=== PATIENT | female | born 1935 | race Caucasian/White ===

== ENCOUNTER 2023-11-02 23:13 | Inpatient (IN) | payer MEDICARE, SELFPAY ==
[2023-11-02 21:13] VITALS: BP 158/82
--- NOTE | 2023-11-02 21:13 | ED.GENMED ---
History of Present Illness
General
Chief Complaint: Fall
Source: patient
Exam Limitations: none
Time Seen by Provider: 11/02/23 21:10
Travel History
Have you had any contact with someone who has COVID-19?: No
Do you have any symptoms of coronavirus? Fever > 100 degrees, chills, cough, shortness of breath, sore throat, loss of taste or smell, muscle aches, or headache?: No
History of Present Illness
History of Present Illness:
This is a 87 year old female that is brought in by ambulance. States that she was feeling dizzy and she fell. States that she can't straight the right leg and she has pain in the right hip area. States that she thinks she hit her head. States that
she has a headache with the dizziness. Denies any LOC. Denies any fever, chills, chest pain, SOB, abd pain, nausea, vomiting, diarrhea, urinary burning.
Past History
Past History
ED Past Medical History: Cancer (Skin CA), Hypothyroidism (prehospital. History of hyperthyroidism she had surgery) and Other (Vertigo, Prolapsed bladder, Immune deficiency disease)
ED Past Surgical History: Appendectomy, Gynecological (Hysterectomy), Tonsilectomy, Urological (Bladder surgery, ) and Other (Cataracts, Bilateral Carotids, )
Patient has exhibited threatening behavior?: No
Social History
Tobacco: Non-smoker
Alcohol: None
Personal:
Living: with family
Family History
Family History: Other (Family history of immune deficiency)
Review of Systems
Review of Systems
All Other Systems: ROS reviewed and negative except as documented in HPI and ROS
Constitutional: Reports no symptoms; Denies fever or chills
EENT: Reports no symptoms
Respiratory: Reports no symptoms; Denies cough or trouble breathing
Cardiac: Reports no symptoms; Denies chest pain
ABD/GI: Reports no symptoms; Denies abdominal pain, nausea, vomiting or diarrhea
: Reports no symptoms; Denies dysuria, frequency or urgency
Musculoskeletal: Reports joint pain (Right hip pain)
Skin: Reports no symptoms
Neurological: Reports dizzy and headache
Psychiatric: Reports no symptoms
Phy Exam
General Physical Exam
General Presentation: mild distress
General age: appears stated age
General Skin: warm, dry and pale
General Habitus: elderly
General Mental: alert
General Hydration: dry mucous membranes
ENT Exam
ENT Exam: TM's normal, pharynx normal and neck supple
Eye Exam
Eye Exam: EOMI
Cardiovascular Exam
Cardiovascular Exam: regular rate/rhythm, no edema and normal peripheral pulses
Pulmonary Exam
Pulmonary Exam: lungs clear, no respiratory distress, no rales, chest non tender, no crackles, no rhonchi, no wheezing and no cough
Gastrointestinal Exam
Gastrointestinal Exam: normal bowel sounds, non tender, soft, no organomegaly, no pulsatile mass and non distended
Musculoskeletal Exam
Musculoskeletal Exam: no edema and other (Right hip pain with palpation. Right leg shortened and externally rotated)
Skin Exam
Skin Exam: warm/dry, no rash, no petechia and pallor
Psychiatric Exam
Psychiatric Exam: normal mood/affect
Course
Orders/Labs/Results
Orders:
Orders
11/02/23 21:13
Acetaminophen [Tylenol] 650 mg PO NOW STA
11/02/23 21:18
Type+Screen Urgent
Complete Blood Count/With Diff Urgent
Comprehensive Metabolic Panel Urgent
PT/INR [Prothrombin Time] Urgent
11/02/23 21:25
Electrocardiogram (*1) Urgent
Reason for Study: Vertigo / Dizzy
EKG- Treatment ONCE
11/02/23 21:26
Hip, Right 2-3 Views [CR Hip - RT w/wo Pel 2-3 Vw*] Urgent
Comment:
Reason For Exam: Fall, pain
Include a pelvis x-ray?: Yes
11/02/23 21:28
CT Head W/o Iv Contrast Urgent
Comment:
Reason For Exam: Fall hitting head
11/02/23 21:33
Troponin I Urgent
11/02/23 22:05
Ondansetron Injectable [Zofran] 4 mg IV NOW STA
11/02/23 22:06
Consult Orthopedic [ORTHOPEDIC CONSULT] Urgent
Consulting Provider: Shahid Blanco
Was physician already notified: Yes
11/02/23 22:42
Admit/Transfer Patient As Directed
Co-Sign Provider:
Level of Care: Inpatient admission
Assign to:: Medical/Surgical
Physician / Group: cassy
Diagnosis: fall, hip fracture
Reason for Hospitalization: fall, hip fracture
Expected length of stay greater than two midnights?: Yes
ELOS- Estimated Length of Stay in days: 2
I certify the patient meets the requirements for IP care: Yes
Code Status As Directed
Resuscitation Status: Full Code
11/02/23 22:43
Orthostatic Vital Signs As Directed
Orthostatic VS Frequency: Now
Abnormal Lab Results
11/02/23
21:18
RBC 4.06 L 10^6/uL
(4.20-5.40)
Hgb 11.9 L g/dL
(12.0-16.0)
Hct 34.5 L %
(37.0-47.0)
Abs Immat Gran (auto) 0.2 H 10^3/uL
(0-0.05)
Absolute Monos (auto) 0.7 H 10^3/uL
(0.1-0.6)
Immature Gran % 1.8 H %
(0-0.5)
Sodium 133 L mmol/L
(135-145)
Carbon Dioxide 21 L mmol/L
(22-30)
BUN 22 H mg/dl
(7-17)
Glucose 137 H mg/dl
(70-99)
11/02/23 21:18
11/02/23 21:18
H/h slightly low. Sodium slightly low. Dehydration. Glucose nonfasting, PT 13.5 with INR 1.03, Troponin <0.012
Vital Signs
Initial and Last Documented VS:
Initial Vital Signs
Temp Pulse Resp BP Pulse Ox
98.0 F 79 20 158/82 96
11/02/23 21:13 11/02/23 21:13 11/02/23 21:13 11/02/23 21:13 11/02/23 21:13
Last Documented Vital Signs
Temp Pulse Resp BP Pulse Ox
98.0 F 70 21 158/82 96
11/02/23 21:13 11/02/23 23:00 11/02/23 23:00 11/02/23 21:13 11/02/23 21:13
MDM/Problems Addressed
Differential Diagnosis Includes:
Right hip fracture, Hip dislocation
MDM/Problems Addressed:
This is a 87 year old female that is brought in by ambulance with c/o fall. States that she has pain in the right hip area.
Will check labs and get X-ray.
Back into see patient and family. Explained that she has a fracture hip. Orthopedics and Hospitalist notified about admission.
Chronic conditions affecting care:
NA
Acute Exacerbation and/or Progression of Chronic Illness:
NA
*Radiology
Radiology exam reviewed: radiology read reviewed (CT head- No evidence of acute intracranial abnormality. Right hip=Comminuted intertrochanteric fracture of the right proximal femur. )
*Pulse Oximetry
Patient hypoxic: no
*EKG
Interpreted by ED Provider?: Yes
Heart Rate: 70
Rate: normal
Rhythm: sinus arrhythmia
[place]: left axis deviation
Interval: normal interval
QRS Pattern: normal QRS
Ischemia: no ischemia
*Painter Interpretation
Rate: normal
Heart Rate: 78
*Critical Care Note
Total Time (30-74mins, 75-104mins- exclusive of procedures): Not Applicable
ED Attending Note
-
Portions of this chart may have been created with voice recognition software.� Occasional wrong word or��sound alike� substitutions may have occurred due to the inherent limitations of voice recognition software.
Discharge Plan
Departure
Patient Disposition: Admit
Date of Disposition: 11/02/23
Time of Disposition: 22:07
Admit to: Med/Surg
Presentation/result/management discussed w/ accepting MD/DO: Hospitalist
Patient with high blood pressure during this ER visit?: Yes
Condition: Good
Covid-19: Not Applicable
Discharge Problem:
Closed fracture of right hip
Interventions
Interventions:
*Risk Screen - Suicide Last Done: 11/02/23 21:12
*General Assessment Last Done: 11/02/23 21:12
*Neglect/Abuse Screening Last Done: 11/02/23 21:12
*ED COVID-19 Vaccine History Last Done: 11/02/23 21:12
ED-Musculoskeletal Assessment Last Done: 11/02/23 21:31
ED- Neurological Assessment Last Done: 11/02/23 21:31
ED-Skin Assessment Last Done: 11/02/23 21:31
[2023-11-02 21:24] LABS: % Basophils 0.5 % (0-2); % Eosinophils 1.8 % (0-6); % Immature Granulocytes 1.8 % (0-0.5); % Lymphocytes 26.2 % (20.5-51.1); % Neutrophils 62.7 % (42.2-75.2); Absolute Basophils 0.1 10^3/uL (0-0.2); Absolute Eosinophils 0.2 10^3/uL (0-0.7); Absolute Immature Granulocytes 0.2 10^3/uL (0-0.05); Absolute Lymphocytes 2.6 10^3/uL (1.2-3.4); Absolute Monocytes 0.7 10^3/uL (0.1-0.6); Absolute Neutrophils 6.2 10^3/uL (1.4-6.5); Hematocrit 34.5 % (37.0-47.0); Hemoglobin 11.9 g/dL (12.0-16.0); Mean Corp Hgb Conc. 34.5 g/dL (33.0-37.0); Mean Corpuscular Hgb 29.3 pg (27.0-31.0); Nucleated Red Blood Cells % 0 %; Platelet Count 288 10^3/uL (130-400); Red Blood Cell Count 4.06 10^6/uL (4.20-5.40); Red Cell Dist. Width 13.1 % (11.5-14.5); White Blood Cell Count 9.9 10^3/uL (4.8-10.8)
[2023-11-02 21:33] LABS: INR 1.03; PT 13.5 Sec (11.4-14.6)
[2023-11-02 21:38] LABS: ALT (SGPT) 16 U/L (0-35); AST (SGOT) 26 U/L (14-36); Albumin 3.9 g/dl (3.5-5.0); Alkaline Phosphatase 121 U/L (38-126); Blood Urea Nitrogen 22 mg/dl (7-17); Calcium 9.5 mg/dl (8.4-10.2); Carbon Dioxide 21 mmol/L (22-30); Chloride 105 mmol/L (98-107); Estimated Creatinine Clearance 46 ml/min; Glucose 137 mg/dl (70-99); Sodium 133 mmol/L (135-145); Total Bilirubin 0.4 mg/dl (0.2-1.3); Total Protein 6.6 g/dl (6.3-8.2); eGFR > 60.00
[2023-11-02 22:07] LABS: Troponin I < 0.012 ng/ml
[2023-11-02] MEDS: ZOFRAN 4 MG IV (22:24)
--- NOTE | 2023-11-02 22:46 | HPS.HSE ---
Family Physician
-
Family Physician: Tato Xiao MD
Chief Complaint
-
fall
History of Present Illness
87-year-old female past medical history of hypothyroidism, skin cancer, bladder prolapse, presenting for dizziness resulting in a fall. Afterwards she could not stand straight on the right leg and has pain in the right hip. She thinks she hit her
head. She denied passing out. Denied any fevers or chills, chest pain, shortness of breath, abdominal pain, nausea vomiting or diarrhea, urinary symptoms.
Patient has been having progressive cognitive decline over the past year. She has had intermittently a few falls since this time associate with dizzy spells. She gets dizzy spells whenever she gets up in the morning or ambulates. No history of
low blood pressure or orthostatic hypotension. No episodes of passing out. No episodes of vertigo or symptoms with head movements.
She fell a month ago onto her back resulting in L1 fracture however on imaging later there is no L1 fracture. She has been having some more ambulatory dysfunction since that fall but otherwise she is able to ambulate upstairs and walk with no chest
pain or shortness of breath.
Patient been eating and drinking adequately although eating a little bit less than she was previously.
No smoking or alcohol use.
Medical History
Past Medical History
Past Medical History: Reports Other (hypothyroidism, skin cancer, bladder prolapse)
Past Surgical History: Reports Other (Appendectomy, Gynecological (Hysterectomy), Tonsilectomy, Urological (Bladder surgery, ) and Other (Cataracts, Bilateral Carotids, ))
Social History
Tobacco: Non-smoker
Alcohol: None
Drug: None
Family History
Family History: Not pertinent
Allergies / Home Medications
Allergies reflects when Allergies were last updated in [employer].
Home Medications with original date entered in [employer]
Allergy/Medication List:
Allergies
Allergy/AdvReac Type Severity Reaction Status Date / Time
prednisone Allergy dazed, Verified 09/17/22 01:18
confused,
headache,
SOB
Home Medications
melatonin 3 mg tablet 6 mg PO HS Sleep ##0 01/28/19
aspirin 81 mg tablet,delayed release (Ryley Low Dose Aspirin) 81 mg PO DAILY 30 days ##30 12/23/21
levothyroxine 125 mcg tablet 125 mcg PO DAILY 11/02/23
Review of Systems
-
History Source: Patient
A 12 point ROS was completed and negative except as noted: Yes
Constitutional: Reports No Symptoms
EENT: Reports No Symptoms
Respiratory: Reports No Symptoms
Cardiac: Reports No Symptoms
Abdomen/GI: Reports No Symptoms
: Reports No Symptoms
Musculoskeletal: Reports No Symptoms
Skin: Reports No Symptoms
Neurological: Reports No Symptoms
Endocrine: Reports No Symptoms
Hematologic/Lymphatic: Reports No Symptoms
Psych: Reports No Symptoms
Physical Exam
Vital Signs
Vital Signs
Temp Pulse Resp BP Pulse Ox
98.0 F 79 20 158/82 96
11/02/23 21:13 11/02/23 21:13 11/02/23 21:13 11/02/23 21:13 11/02/23 21:13
Physical Exam
General: Well Developed, Well Nourished and No Apparent Distress
HEENT: NormoCephalic, Moist mucous membranes and Atraumatic
Respiratory: Clear
Cardiac: S1/S2 and Regular Rhythm; No Murmur or Rub
GI: Soft, Non Tender, Non Distended and Normal Bowel Sounds; No Organomegaly
Rectal: Deferred by Provider
Musculoskeletal: No Clubbing, No Cyanosis and No Edema
Skin: No Rash
Neuro: Nonfocal/grossly intact
Laboratory Results
-
11/02/23 21:18
11/02/23 21:18
Laboratory Results
PT 13.5 Sec (11.4-14.6) 11/02/23 21:18
INR 1.03 11/02/23 21:18
Total Bilirubin 0.4 mg/dl (0.2-1.3) 11/02/23 21:18
AST 26 U/L (14-36) 11/02/23 21:18
ALT 16 U/L (0-35) 11/02/23 21:18
Alkaline Phosphatase 121 U/L (38-126) 11/02/23 21:18
Troponin I < 0.012 ng/ml 11/02/23 21:33
Data Reviewed
-
Lab Data: Labs Reviewed by me
Old Records: Reviewed
Impression/Plan
-
IMPRESSION:
PLAN:
# Right proximal femur comminuted intertrochanteric fracture
-Ortho consulted for plan for surgery on Tuesday
-CT head shows no acute abnormality
-Tylenol, Toradol, for pain
-Cautious with Dilaudid since patient somewhat lethargic after receiving fentanyl en route to the hospital
-Hold prophylactic aspirin
-Patient at low risk for cardiac complications given lack of cardiac history, good functional status prior to recent falls
# Ongoing dizziness episodes, suspect orthostatic hypotension
-Check orthostatic vital signs
-EKG shows normal sinus rhythm with sinus arrhythmia
# History of falls with questionable L1 fracture
-L1 fracture apparently ruled out on more recent x-ray however as per daughter
# Progressive cognitive decline likely dementia
Hypothyroidism
-Continue levothyroxine
Chronic hyponatremia
-Sodium normally around 133
History of skin cancer
History of bladder prolapse
Full code
DVT prophylaxis�Heparin
Regular diet
[2023-11-02 23:00] VITALS: BP 145/63
[2023-11-03] VITALS (9 sets, daily range): BP systolic 103–154; BP diastolic 58–89; BMI 20.4
[2023-11-03 06:46] LABS: % Basophils 0.3 % (0-2); % Eosinophils 0.1 % (0-6); % Immature Granulocytes 0.6 % (0-0.5); % Lymphocytes 8.3 % (20.5-51.1); % Monocytes 4.7 % (1.7-9.3); Absolute Immature Granulocytes 0.1 10^3/uL (0-0.05); Absolute Lymphocytes 1.1 10^3/uL (1.2-3.4); Absolute Monocytes 0.6 10^3/uL (0.1-0.6); Absolute Neutrophils 11.3 10^3/uL (1.4-6.5); Hemoglobin 11.5 g/dL (12.0-16.0); Mean Corp Hgb Conc. 33.8 g/dL (33.0-37.0); Mean Corpuscular Hgb 29.3 pg (27.0-31.0); Mean Corpuscular Volume 86.5 fL (81.0-99.0); Mean Platelet Volume 10.3 fL (7.4-10.4); Nucleated Red Blood Cells % 0 %; Platelet Count 266 10^3/uL (130-400); Red Blood Cell Count 3.93 10^6/uL (4.20-5.40); Red Cell Dist. Width 13.1 % (11.5-14.5); White Blood Cell Count 13.1 10^3/uL (4.8-10.8)
[2023-11-03 07:17] LABS: ALT (SGPT) 16 U/L (0-35); AST (SGOT) 22 U/L (14-36); Albumin 3.7 g/dl (3.5-5.0); Alkaline Phosphatase 105 U/L (38-126); Blood Urea Nitrogen 24 mg/dl (7-17); Calcium 9.5 mg/dl (8.4-10.2); Carbon Dioxide 25 mmol/L (22-30); Chloride 101 mmol/L (98-107); Estimated Creatinine Clearance 53 ml/min; Glucose 130 mg/dl (70-99); Potassium 4.6 mmol/L (3.5-5.1); Sodium 135 mmol/L (135-145); Total Bilirubin 0.4 mg/dl (0.2-1.3); Total Protein 6.1 g/dl (6.3-8.2); eGFR > 60.00
--- NOTE | 2023-11-03 07:38 | W.PN.UPDATE ---
Update Note
Progress Note Update
Patient seen and evaluated
Plan for OR tomorrow for right hip CMN
NPO at midnight
Formal consult note to follow
[2023-11-03] MEDS: HEPARIN 5000 UNITS SC ×2 (08:52→21:07)
--- NOTE | 2023-11-03 09:14 | PTCARENOTE ---
pt wakes to name. states no pain unless moving right leg. pulses present. room air 92% breath sounds diminished. pt son at bedside reviewed pt condition an plan of care.
[2023-11-03] MEDS: SYNTHROID 125 MCG PO (09:52)
--- NOTE | 2023-11-03 10:18 | W.PN.HOSP.TC ---
Addendum entered and electronically signed by Enoch Stone DO 11/03/23 16:03:
TSH 0.05, free T4 2.56. Free T3 normal.
Iatrogenic hyperthyroidism suspected. Will lower levothyroxine dose to 100 mcg daily. Recheck thyroid labs in 4 weeks.
Original Note:
Today's Communication/Plan
-
TSH
B12
Orthostatics
Hemoglobin A1c
Assessment / Plan
Assessment / Plan
Gen-AAOx3, NAD
HEENT-NC, AT, anicteric, clear oral mm
Neck-supple
CV-reg, no M, +S1/S2
Lungs-clear B/L
Abd-soft, NT, ND
Ext-no edema
Musculoskeletal-no cyanosis, clubbing, right lower extremity externally rotated and shortened
Skin-warm and dry
Neuro-grossly non-focal
Psych-calm, cooperative
Acute traumatic right proximal femur fracture -due to fall at home. No loss of consciousness reported. Hemodynamically stable. N.p.o. after midnight for orthopedic repair tomorrow.
Episodic lightheadedness -denies vertigo. Unclear if orthostatic versus other etiology. Monitor on telemetry. Check echocardiogram. Check orthostatic vitals when able.
Hyponatremia -present on admission, improved.
Hyperglycemia -glucose 130 this morning. Rule out DM2. Check hemoglobin A1c.
Hypothyroidism -continue levothyroxine. Check TSH.
Normocytic anemia -unknown acuity or etiology. Monitor for now.
Full code
Family updated at the bedside.
Anticipated Discharge: > 48 hours
Subjective/Interval History
-
Date of Service: November 03, 2023
Patient seen and examined. No complaints currently. Does have right hip pain with movement.
Objective Data
-
Labs:
Laboratory Results
11/03/23
06:11
WBC 13.1 H
Hgb 11.5 L
Hct 34.0 L
Plt Count 266
Sodium 135
Potassium 4.6
Chloride 101
Carbon Dioxide 25
BUN 24 H
Creatinine 0.6
Glucose 130 H
Calcium 9.5
Total Bilirubin 0.4
AST 22
ALT 16
Alkaline Phosphatase 105
Vital Signs:
Vital Signs
Temp Pulse Resp BP Pulse Ox
98.2 F 87 16 103/60 92
11/03/23 09:09 11/03/23 09:00 11/03/23 09:00 11/03/23 08:00 11/03/23 09:09
Review of Systems
-
History Source: Patient
All other systems: Reviewed and negative
[2023-11-03] MEDS: TORADOL 10 MG IV ×2 (11:32→17:51)
[2023-11-03 11:47] LABS: Glycohemoglobin (HgbA1c) 5.7 % (4.0-5.6)
[2023-11-03 12:25] LABS: TSH 0.05 uIU/ml (0.47-4.68)
[2023-11-03 13:01] LABS: Folate 6.6 ng/ml (2.76-20); Vitamin B12 268 pg/ml (239-931)
[2023-11-03 15:31] LABS: Free T3 3.03 pg/ml (2.77-5.27); Free T4 2.56 ng/dl (0.78-2.19)
--- NOTE | 2023-11-03 15:45 | PTCARENOTE ---
Received pt from ER. Pt awake,alert and oriented x3. Pt c/o pain in right hip with movement or change in position, tolerable at rest. Pt VSS 92% on RA. Pt oriented to room,call calderon within reach, HOB elevated, plan of care ongoing
--- NOTE | 2023-11-03 15:58 | PTCARENOTE ---
Addendum entered by Mark Camacho RN 11/03/23 18:43:
with cell phone and paperwork
Original Note:
pt transferred to floor with all belongings. on o2.
[2023-11-03] MEDS: VITAMIN B-12 1000 MCG PO (16:04)
--- NOTE | 2023-11-03 17:34 | CON.ORTHO ---
Consultation - Orthopedics
History
HPI: 87-year-old female presented to the [facility] emergency department status post fall with complaints of right hip pain. She was subsequently diagnosed with a right intertrochanteric femur fracture and admitted to the hospital service for
ambulatory dysfunction. Orthopedics was consulted for further evaluation and treatment. This morning patient's son was at the bedside. Patient reports that she had some dizziness that resulted in a fall onto her right hip. They do report history
of recent falls. Currently pain is well localized to the right groin is made worse with direct palpation affected area and with ambulation. She does report using a walker intermittently for ambulatory assistance
Allergies / Home Medications
Past medical history: Skin cancer, bladder prolapse, hypothyroidism
Past surgical history: Appendectomy, hysterectomy, bladder surgery, carotid surgery
Family history: Not pertinent
Social history: Non-smoker
Allergy/AdvReac Type Severity Reaction Status Date / Time
prednisone Allergy dazed, Verified 09/17/22 01:18
confused,
headache,
SOB
�Medication �Instructions �Recorded
melatonin 3 mg tablet 6 mg PO HS Sleep ##0 01/28/19
aspirin 81 mg tablet,delayed 81 mg PO DAILY 30 days ##30 12/23/21
release (Ryley Low Dose Aspirin)
levothyroxine 125 mcg tablet 125 mcg PO DAILY 11/02/23
Vital Signs / Lab Results
Temp Pulse Resp BP Pulse Ox
98.8 F 83 18 126/61 92
11/03/23 15:40 11/03/23 15:40 11/03/23 15:40 11/03/23 15:40 11/03/23 15:40
11/03/23 06:11
11/03/23 06:11
10 point review systems reviewed and negative unless otherwise stated
General: Pleasant, no acute distress
Musculoskeletal right lower extremity
Skin intact, no erythema, no significant ecchymotic staining on inspection
There is some moderate swelling over right thigh
Extremity shortened externally rotated
No palpable ipsilateral knee effusion
Positive EHL, FHL, ankle dorsiflexion, plantarflexion
Sensation intact grossly to light touch distally
Brisk cap refill
No other areas of bony tenderness palpation or crepitation of long bones and joints on tertiary examination
Diagnostic studies
X-rays right hip independently viewed by myself. This does show displaced intertrochanteric femur fracture.
Assessment / Plan
87-year-old female history of ambulatory dysfunction status post fall with right peritrochanteric femur fracture. I do long detailed discussion with the patient as well as her son at bedside. Discussed diagnosis and treatment options. Discussed
with surgical nonsurgical options. Given patient's fracture pattern, would recommend surgical intervention in the form of cephalomedullary nail fixation. We discussed risks benefits and alternatives to surgery. We discussed the usual expected
perioperative postoperative course. We did discuss the need for DVT prophylaxis in the postoperative setting. After discussion, verbal consent was obtained to proceed with surgical intervention. Will plan obtain written informed consent prior to
proceeding with surgery. Plan for OR tomorrow
Nonweightbearing right lower extremity
N.p.o. midnight
PT OT: Deferred until postoperative setting
DVT prophylaxis: Hold in preparation for or
Pain control
Medical management per primary team
Plan: 2 OR tomorrow for operative fixation right hip fracture pending medical clearance and OR availability
[2023-11-04] VITALS (16 sets, daily range): BP systolic 84–140; BP diastolic 54–88
[2023-11-04] MEDS: SYNTHROID 100 MCG PO (05:41)
--- NOTE | 2023-11-04 09:25 | PN.CDI ---
CDI
- -
CDI:
Physician Documentation Request
Admit Date: 11/02/23 23:13
Dear Doctor Chase,
Please review the following and provide your response in the progress notes.
Clinical Indicators:
- 11/01 ER Physician 'feeling dizzy and she fell. States that she can't straight the right leg and she has pain in the right hip area'
- 11/02 PN 'Acute traumatic right proximal femur fracture -due to fall at home'
- 03/20/2019 Bone Density Dexa Report 'Osteoporosis. There has been a statistically significant decrease in bone mineral density'
Please provide further specificity regarding the diagnosis of right femur fracture:
Traumatic only
Pathologic due to osteoporosis
Due to a combination of trauma and a pathological process but the trauma alone may not likely have been sufficient to cause the fracture
Other
Use of terms such as suspected, likely, concern for, or probable (associated with a specific diagnosis that is being evaluated, monitored, or treated as if it exists) are acceptable and can be coded in the inpatient setting, when documented at the
time of discharge.
Thank you,
Christophe Elder RN
CDI Specialist
Please use your independent medical judgment in providing your response.
[2023-11-04] MEDS: VITAMIN B-12 1000 MCG PO (09:31)
[2023-11-04] MEDS: HEPARIN 5000 UNITS SC (09:32)
--- NOTE | 2023-11-04 10:00 | CM ---
Met with patient at bedside; initial assessment completed.
Spoke with patient's son Saurabh #[phone] via phone; discussed CM's role and discharge planning process
Pharmacy verified: [facility]
Patient reported that she lives in a multi-level duplex home with her grandson, Sung; 1-2 steps to enter; 12-13 steps to 2nd floor bedroom and bath; powder room on the 1st floor; railing on stairs
PLOF: Patient scheduled for surgery today. Patient reported that prior to Fall, she was independent with ambulation, steps, and ADLs; drives only during the day; daughter, Carmen, lives next door
DME: grab bars in bath
SNF/Rehab/Home Health utilization history: None
Transportation: will be determined pending disposition/DC plan
Plan: patient will probably require rehab @ SNF. CM will notify son, Saurabh, after PT/OT recommendation is identified post surgery
--- NOTE | 2023-11-04 10:25 | W.PN.HOSP.TC ---
Addendum entered and electronically signed by Enoch Stone DO 11/04/23 13:55:
Femur fracture due to trauma and underlying osteoporosis.
Original Note:
Today's Communication/Plan
-
Await surgery
Assessment / Plan
Assessment / Plan
Gen-AAOx3, NAD
HEENT-NC, AT, anicteric, clear oral mm
Neck-supple
CV-reg, no M, +S1/S2
Lungs-clear B/L
Abd-soft, NT, ND
Ext-no edema
Musculoskeletal-no cyanosis, clubbing, right lower extremity externally rotated and shortened
Skin-warm and dry
Neuro-grossly non-focal
Psych-calm, cooperative
Acute traumatic right proximal femur fracture -due to fall at home. No loss of consciousness reported. Hemodynamically stable. Awaiting surgery today.
Episodic lightheadedness -denies vertigo. Unclear if orthostatic versus other etiology. Monitor on telemetry. Check orthostatic vitals when able. Echocardiogram showed LVEF 60 to 65%, normal RV systolic function, mild MR. Normal regional wall
motion.
Hyponatremia -present on admission, improved.
Impaired fasting glucose -hemoglobin A1c 5.7%.
Hypothyroidism -continue levothyroxine, dose was lowered due to suppressed TSH and elevated free T4. Recheck labs in 4 weeks as an outpatient.
Normocytic anemia -unknown acuity or etiology. Monitor for now.
Full code
PT/OT postop
Anticipated Discharge: 24 - 48 hours
Subjective/Interval History
-
Date of Service: November 04, 2023
Patient seen and examined. No complaints currently.
Objective Data
-
Vital Signs:
Vital Signs
Temp Pulse Resp BP Pulse Ox
98.4 F 88 16 140/88 94
11/04/23 09:12 11/04/23 09:12 11/04/23 09:12 11/04/23 09:12 11/04/23 09:12
I&O
11/03/23 11/04/23 11/05/23
06:59 06:59 06:59
Intake Total 120 / 120
Balance 120 / 120
Review of Systems
-
History Source: Patient
All other systems: Reviewed and negative
[2023-11-04] MEDS: TORADOL 10 MG IV (12:38)
--- NOTE | 2023-11-04 13:14 | OR.RPT ---
Operative Report
Operative Report
Anesthesia Type:
Spinal
Operative Indications:
Right peritrochanteric femur fracture
Operative Findings :
Right IT femur fx
Complications:
None
Implants:
11 mm X 130 degree short gamma nail, 37.5 mm distal interlocking screw, 5mm
Procedure and Technique:
Insertion right short cephalomedullary nail
INDICATIONS FOR PROCEDURE:
87-year-old patient presented status post mechanical fall. They were subsequently diagnosed with a peritrochanteric femur fracture. Orthopedics was consulted for further evaluation and treatment. After discussion with the patient and her family,
decision was made to proceed with operative fixation right hip fracture.. Long discussion was had regarding risks and benefits of procedure. Risks include but are not limited to infection, blood loss, damage to surrounding structures, persistent
pain, loss of function, need for repeat surgery, implant cut out, periprosthetic fracture, DVT/PE and adverse risks of anesthesia. Benefits include early mobilization and fracture stabilization. After discussion written informed consent was
obtained.
OPERATIVE PROCEDURE:
Patient was seen and identified in the preoperative holding area. Operative extremity was marked. Patient was taken to the operating room and provided anesthesia by the anesthesia team. Placed supine on fracture table. Nonoperative extremity was
placed in a scissored position and padded to the contralateral post of the fracture table. Operative extremity was placed in a well-padded fracture boot. Biplanar fluoroscopy confirmed appropriate reduction after axial traction, adduction and
slight internal rotation of the fracture. Operative extremity was then prepped and draped in normal sterile fashion. Timeout was performed again identifying the operative extremity correctly. Preoperative antibiotics were addressed.
Approximately 5 cm incision was made 2 fingerbreadths proximal to the greater trochanter. Sharp dissection was carried through skin and subcutaneous tissues deep fascial layers. Guidepin was then inserted under plantar fluoroscopic guidance
through the greater trochanter in accordance with the implants operative technique. This was inserted to a depth just distal to the lesser trochanter. Proximal opening reamer was then utilized. A 11 millimeter X 130 degree short cephalomedullary
nail was then inserted to the appropriate depth. Trocar was then inserted through the aiming arm. Sharp dissection was then carried through skin and subcutaneous tissues as well as deep fascial layers. Guidewire was inserted through the trocar
into the femoral neck and head. Appropriate position was confirmed under biplanar fluoroscopy. Attention was made to minimize the tip apex distance. Measurements were obtained for the cephalomedullary screw. Cannulated drill was then drilled to
the appropriate depth followed by the insertion of cannulated cephalomedullary screw. Appropriate final position of the screw within the confines of the femoral neck and head were confirmed again on biplanar fluoroscopy. Additional trocar was then
inserted through the aiming arm for the distal interlocking screw. Sharp dissection was carried through skin, subcutaneous tissues and deep fascial layers. Appropriate length interlocking screw was then drilled and inserted. Final appropriate
positioning was confirmed again on biplanar fluoroscopy. Satisfied with the extent of surgery, wounds were copiously irrigated with normal saline solution and closed in a layered fashion utilizing 0 Vicryl for deep fascial layer, 2-0 Vicryl for
subcu cutaneous layer and irene for skin. Aquacel dressings were applied. Anesthesia was reversed and patient was taken to the operating room in stable condition. Post op plans will include WBAT to patients tolerance operative extremity, will
recommend renally dosed lovenox daily for 28 days for post op. Follow up outpatient in 2 weeks with myself.
Disposition:
PACU stable condition
--- NOTE | 2023-11-04 14:31 | PTCARENOTE ---
Received patient this am AAOx2. NPO for OR today for ORIF Right Hip. Pt with no urine output. Bladder Scanned for [address] Stone made aware. Reese inserted as ordered. Report given to OR and patient sent to OR.
[2023-11-04] MEDS: NSS 1000 IV (16:00)
--- NOTE | 2023-11-04 16:58 | PTCARENOTE ---
Pt arrived to [facility] from PACU s/p R hip gamma nail. Pt NV intact, 2 R hip aquacel C/D/I. Pt states no pain at this time. On 2L NC, IVF infusing. Pt oriented to call calderon and room, bed locked and in lowest position. Call calderon within reach.
--- NOTE | 2023-11-04 18:20 | PTCARENOTE ---
Pt ripped out her IV. Patient stated 'I didn't want it anymore'. Discussed benefit of IV when in hospital and benefit of IVF infusing. Dr. Stone notified. No new orders placed.
[2023-11-04] MEDS: COLACE 100 MG PO (20:12)
[2023-11-04] MEDS: ANCEF 5 IV (22:13)
[2023-11-04] MEDS: ROXICODONE 5 MG PO (22:19)
[2023-11-05] VITALS (7 sets, daily range): BP systolic 91–123; BP diastolic 55–66; PULSE 94–96; O2SAT 94–98; BMI 21.5
[2023-11-05] MEDS: NSS 1000 IV ×3 (05:29→22:47)
[2023-11-05] MEDS: ANCEF 5 IV (05:29)
[2023-11-05] MEDS: SYNTHROID 100 MCG PO (05:31)
--- NOTE | 2023-11-05 07:58 | PTCARENOTE ---
Went in to assess patient after nursing report. Patient found to have ripped her Reese catheter out. Bladder scan shows 8 mL. Pt also refused morning lab work. Provider notified. No new orders at this time.
[2023-11-05] MEDS: VITAMIN B-12 1000 MCG PO (09:09)
[2023-11-05] MEDS: COLACE 100 MG PO ×2 (09:09→19:48)
[2023-11-05] MEDS: TORADOL 10 MG IV (09:19)
[2023-11-05 09:42] LABS: % Basophils 0.5 % (0-2); % Eosinophils 0.8 % (0-6); % Immature Granulocytes 1.2 % (0-0.5); % Lymphocytes 11.8 % (20.5-51.1); % Monocytes 9.8 % (1.7-9.3); % Neutrophils 75.9 % (42.2-75.2); Absolute Basophils 0.1 10^3/uL (0-0.2); Absolute Eosinophils 0.1 10^3/uL (0-0.7); Absolute Immature Granulocytes 0.1 10^3/uL (0-0.05); Absolute Lymphocytes 1.2 10^3/uL (1.2-3.4); Absolute Neutrophils 7.8 10^3/uL (1.4-6.5); Mean Corp Hgb Conc. 33.6 g/dL (33.0-37.0); Mean Corpuscular Hgb 29.9 pg (27.0-31.0); Nucleated Red Blood Cells % 0 %; Platelet Count 220 10^3/uL (130-400); Red Blood Cell Count 2.81 10^6/uL (4.20-5.40); Red Cell Dist. Width 13.4 % (11.5-14.5); White Blood Cell Count 10.2 10^3/uL (4.8-10.8)
--- NOTE | 2023-11-05 09:46 | W.PN.ORTHO ---
Today's Communication / Plan
-
87-year-old female postop day 1 status post right cephalomedullary nail fixation for peritrochanteric femur fracture doing well
Weightbearing as tolerated right lower
PT OT
Pain control
DVT prophylaxis: Recommend Lovenox renally dosed daily for 28 days
Medical management per primary team
Plan: Follow-up outpatient with myself in 2 to 3 weeks repeat evaluation with planned removal of irene
Subjective
.
.:
Patient resting comfortably in bed with son at bedside. Complaining of low back pain this morning. No documented acute overnight events
Vital Signs and Labs
.
Vital Signs and Labs:
Lab Results
11/03/23 06:11
Temp Pulse Resp BP Pulse Ox
99 F 89 16 95/56 94
11/05/23 07:14 11/05/23 07:14 11/05/23 07:14 11/05/23 07:14 11/05/23 07:14
PT 13.5 Sec (11.4-14.6) 11/02/23 21:18
INR 1.03 11/02/23 21:18
Physical Exam
-
Musculoskeletal right lower extremity
Dressings with very minimal bloody drainage
Moderate swelling thigh
Positive EHL, FHL, ankle dorsiflexion, plantarflexion
Sensation grossly tact light touch in all dispositions distally
Brisk cap refill
[2023-11-05 10:19] LABS: Hemoglobin 8.4 g/dL (12.0-16.0)
[2023-11-05] MEDS: TYLENOL 650 MG PO (11:03)
--- NOTE | 2023-11-05 12:21 | CM ---
Met with Son, Saurabh and dgtr Carmen. Reviewed PT OT recommendations for acute rehab. discussed area rehabs. Son only wants referral to [facility] at . Back up SnF referral to [facility] which is very close to [facility].
Per son patient has hairline fracture at L-1.
Referrals to [facility] and [facility] sent in careport with [facility] attached to SNf referral.
[2023-11-05] MEDS: ProAmatine 5 MG PO (12:30)
--- NOTE | 2023-11-05 13:30 | W.PN.HOSP.TC ---
Today's Communication/Plan
-
Check orthostatic vitals
Compression stockings
Midodrine as needed
Continue PT/OT
Assessment / Plan
Assessment / Plan
Gen-AAOx3, NAD
HEENT-NC, AT, anicteric, clear oral mm
Neck-supple
CV-reg, no M, +S1/S2
Lungs-clear B/L
Abd-soft, NT, ND
Ext-no edema
Musculoskeletal-no cyanosis, clubbing, right lower extremity externally rotated and shortened
Skin-warm and dry
Neuro-grossly non-focal
Psych-calm, cooperative
Acute traumatic right proximal femur fracture - fracture due to fall at home, as well as underlying osteoporosis. No loss of consciousness reported. Concern for orthostatic hypotension as cause or contributor to her fall. Has had intermittent
episodes of lightheadedness throughout the years. Check orthostatic vitals.
Nursing reports patient pulled out her own Reese catheter. Monitor bladder scans.
Orthostatic hypotension - echocardiogram showed LVEF 60 to 65%, normal RV systolic function, mild MR. Normal regional wall motion. Add compression stockings, as needed midodrine.
Acute postop anemia -suspect due to acute operative blood loss anemia. Hemoglobin 11.9 on admission, 8.4 today. Monitor for now. Baseline hemoglobin unknown.
Hyponatremia -present on admission, improved.
Impaired fasting glucose -hemoglobin A1c 5.7%.
Hypothyroidism -continue levothyroxine, dose was lowered due to suppressed TSH and elevated free T4. Recheck labs in 4 weeks as an outpatient.
Full code
Dispo -will need acute rehab on discharge. Case management aware. Consult physiatry.
Updated family at the bedside.
Anticipated Discharge: > 48 hours
Subjective/Interval History
-
Date of Service: November 05, 2023
Patient seen and examined. Family at the bedside. Denies lightheadedness currently.
Objective Data
-
Labs:
Laboratory Results
11/05/23
09:00
WBC 10.2
Hgb 8.4 L D
Hct 25.0 L
Plt Count 220
Vital Signs:
Vital Signs
Temp Pulse Resp BP Pulse Ox
98.3 F 94 16 86/56 98
11/05/23 11:28 11/05/23 11:28 11/05/23 11:28 11/05/23 12:30 11/05/23 11:28
I&O
11/04/23 11/05/23 11/06/23
06:59 06:59 06:59
Intake Total 120 / 120 1900 / 1900
Output Total 975 / 975
Balance 120 / 120 925 / 925
Review of Systems
-
History Source: Patient
All other systems: Reviewed and negative
--- NOTE | 2023-11-05 15:52 | PTCARENOTE ---
Pt refusing orthostatic vitals. I educated her on why orthostatic vitals are ordered by the physician due to her feeling dizzy and becoming hypotensive. Dr. Stone notified.
[2023-11-05] MEDS: ROXICODONE 5 MG PO (20:01)
[2023-11-06 07:09] VITALS: BP 99/60
[2023-11-06 07:36] LABS: % Basophils 0.5 % (0-2); % Eosinophils 3.7 % (0-6); % Immature Granulocytes 1.4 % (0-0.5); % Lymphocytes 14.8 % (20.5-51.1); % Monocytes 8.9 % (1.7-9.3); % Neutrophils 70.7 % (42.2-75.2); Absolute Eosinophils 0.3 10^3/uL (0-0.7); Absolute Immature Granulocytes 0.1 10^3/uL (0-0.05); Absolute Lymphocytes 1.3 10^3/uL (1.2-3.4); Absolute Monocytes 0.8 10^3/uL (0.1-0.6); Absolute Neutrophils 6.1 10^3/uL (1.4-6.5); Hemoglobin 7.7 g/dL (12.0-16.0); Mean Corp Hgb Conc. 33.5 g/dL (33.0-37.0); Mean Corpuscular Hgb 29.8 pg (27.0-31.0); Mean Corpuscular Volume 89.1 fL (81.0-99.0); Mean Platelet Volume 10.4 fL (7.4-10.4); Nucleated Red Blood Cells % 0 %; Platelet Count 179 10^3/uL (130-400); Red Blood Cell Count 2.58 10^6/uL (4.20-5.40); Red Cell Dist. Width 13.7 % (11.5-14.5); White Blood Cell Count 8.6 10^3/uL (4.8-10.8)
[2023-11-06] MEDS: SYNTHROID 100 MCG PO (07:57)
[2023-11-06] MEDS: TORADOL 10 MG IV (08:07)
[2023-11-06] MEDS: VITAMIN B-12 1000 MCG PO (08:16)
[2023-11-06] MEDS: COLACE 100 MG PO ×2 (08:16→20:22)
[2023-11-06 09:30] VITALS: BP 102/60; BP 108/60; BP 95/56; PULSE 100; PULSE 109; PULSE 92
[2023-11-06 09:56] VITALS: BP 102/60; BP 104/59; BP 108/60; BP 95/56; PULSE 100; PULSE 109; PULSE 92
[2023-11-06 11:30] VITALS: BP 92/52
[2023-11-06] MEDS: ProAmatine 5 MG PO (11:31)
--- NOTE | 2023-11-06 11:56 | W.PN.HOSP.TC ---
Today's Communication/Plan
-
Add Ensure
Continue PT/OT
CBC in the morning
Assessment / Plan
Assessment / Plan
Gen-AAOx3, NAD
HEENT-NC, AT, anicteric, clear oral mm
Neck-supple
CV-reg, no M, +S1/S2
Lungs-clear B/L
Abd-soft, NT, ND
Ext-no edema
Musculoskeletal-no cyanosis, clubbing, right lower extremity externally rotated and shortened
Skin-warm and dry
Neuro-grossly non-focal
Psych-calm, cooperative
Acute traumatic right proximal femur fracture - fracture due to fall at home, as well as underlying osteoporosis. No loss of consciousness reported. Concern for orthostatic hypotension as cause or contributor to her fall. Has had intermittent
episodes of lightheadedness throughout the years. Check orthostatic vitals.
Nursing reports patient pulled out her own Reese catheter. Monitor bladder scans (243cc this am).
Orthostatic hypotension - echocardiogram showed LVEF 60 to 65%, normal RV systolic function, mild MR. Normal regional wall motion. Continue compression stockings, as needed midodrine.
Acute postop anemia -suspect due to acute operative blood loss anemia. Hemoglobin 11.9 on admission, 7.7 today. Monitor for now. Baseline hemoglobin unknown.
Hyponatremia -present on admission, improved.
Impaired fasting glucose -hemoglobin A1c 5.7%.
Hypothyroidism -continue levothyroxine, dose was lowered due to suppressed TSH and elevated free T4. Recheck labs in 4 weeks as an outpatient.
Full code
Dispo -will need acute rehab on discharge. Case management aware. Consult physiatry.
Updated family at the bedside.
Anticipated Discharge: 24 - 48 hours
Subjective/Interval History
-
Date of Service: November 06, 2023
Patient seen and examined. No complaints currently.
Objective Data
-
Labs:
Laboratory Results
11/06/23
06:58
WBC 8.6
Hgb 7.7 L
Hct 23.0 L
Plt Count 179
Vital Signs:
Vital Signs
Temp Pulse Resp BP Pulse Ox
99.7 F 85 17 92/52 95
11/06/23 07:09 11/06/23 11:31 11/06/23 07:09 11/06/23 11:31 11/06/23 07:09
I&O
11/05/23 11/06/23 11/07/23
06:59 06:59 06:59
Intake Total 1900 / 1900 2160 / 2160 120 / 120
Output Total 975 / 975
Balance 925 / 925 2160 / 2160 120 / 120
Review of Systems
-
History Source: Patient
All other systems: Reviewed and negative
[2023-11-06 15:35] VITALS: BP 112/61
[2023-11-06] MEDS: TYLENOL 650 MG PO (18:40)
[2023-11-06] MEDS: LOVENOX 30 MG SC (18:42)
[2023-11-06 23:55] VITALS: BP 106/58
[2023-11-07] VITALS (8 sets, daily range): BP systolic 109–142; BP diastolic 59–88; PULSE 86; O2SAT 94; BMI 21.5
[2023-11-07 04:57] LABS: % Basophils 0.4 % (0-2); % Eosinophils 4.8 % (0-6); % Immature Granulocytes 1.5 % (0-0.5); % Lymphocytes 21.1 % (20.5-51.1); % Monocytes 9.3 % (1.7-9.3); % Neutrophils 62.9 % (42.2-75.2); Absolute Eosinophils 0.3 10^3/uL (0-0.7); Absolute Immature Granulocytes 0.1 10^3/uL (0-0.05); Absolute Lymphocytes 1.5 10^3/uL (1.2-3.4); Absolute Monocytes 0.7 10^3/uL (0.1-0.6); Absolute Neutrophils 4.5 10^3/uL (1.4-6.5); Hematocrit 21.3 % (37.0-47.0); Mean Corp Hgb Conc. 32.9 g/dL (33.0-37.0); Mean Corpuscular Hgb 29.7 pg (27.0-31.0); Mean Corpuscular Volume 90.3 fL (81.0-99.0); Mean Platelet Volume 10.1 fL (7.4-10.4); Nucleated Red Blood Cells % 0 %; Platelet Count 196 10^3/uL (130-400); Red Blood Cell Count 2.36 10^6/uL (4.20-5.40); Red Cell Dist. Width 13.3 % (11.5-14.5); White Blood Cell Count 7.1 10^3/uL (4.8-10.8)
--- NOTE | 2023-11-07 05:19 | W.PN.UPDATE ---
Update Note
Progress Note Update
Morning labs: Hgb 7.0/Hct 21.3, drop from Hgb 11.9/Hct 34.5, suspect due to acute operative blood loss anemia. Order placed for 1 unit PRBCs to transfuse today.
--- NOTE | 2023-11-07 08:05 | W.PN.HOSP.TC ---
Today's Communication/Plan
-
Blood transfusion today. Rehab eval.
Assessment / Plan
Assessment / Plan
Gen-AAOx3, NAD
HEENT-NC, AT, anicteric, clear oral mm
Neck-supple
CV-reg, no M, +S1/S2
Lungs-clear B/L
Abd-soft, NT, ND
Ext-no edema
Musculoskeletal-right hip postop findings, no hematoma. No cyanosis, clubbing.
Skin-warm and dry
Neuro-grossly non-focal
Psych-calm, cooperative
A/P:
Acute traumatic right proximal femur fracture - fracture due to fall at home, as well as underlying osteoporosis. No loss of consciousness reported. Concern for orthostatic hypotension as cause or contributor to her fall. Has had intermittent
episodes of lightheadedness throughout the years. Check orthostatic vitals.
Nursing reports patient pulled out her own Reese catheter. Monitor bladder scans.
Acute postop anemia -suspect due to acute operative blood loss anemia. Hemoglobin 11.9 on admission, 7 today. Transfuse 1 unit of blood today. Discussed with patient and daughter at bedside about pros and cons and they decided in favor of
transfusion today although with hesitation due to concerns about SARSCov2 vaccination in blood donors.
Orthostatic hypotension - echocardiogram showed LVEF 60 to 65%, normal RV systolic function, mild MR. Normal regional wall motion. Continue compression stockings, as needed midodrine.
Hyponatremia -present on admission, improved.
Impaired fasting glucose -hemoglobin A1c 5.7%.
Hypothyroidism (Doni's)-continue levothyroxine, dose was lowered due to suppressed TSH and elevated free T4. Recheck labs in 4 weeks as an outpatient.
Full code
Dispo -will need acute rehab on discharge. Case management aware. Consult physiatry.
Anticipated Discharge: 24 - 48 hours
Subjective/Interval History
-
Date of Service: November 07, 2023
No chest pain or shortness of breath. Generalized weakness. No melena or hematemesis.
Objective Data
-
Labs:
Laboratory Results
11/07/23
04:26
WBC 7.1
Hgb 7.0 L
Hct 21.3 L
Plt Count 196
Vital Signs:
Vital Signs
Temp Pulse Resp BP Pulse Ox
98.8 F 86 18 106/58 96
11/06/23 23:55 11/06/23 23:55 11/06/23 23:55 11/06/23 23:55 11/06/23 23:55
I&O
11/06/23 11/07/23 11/08/23
06:59 06:59 06:59
Intake Total 2160 / 2160 1080 / 1080
Output Total 950 / 950
Balance 2160 / 2160 130 / 130
[2023-11-07] MEDS: VITAMIN B-12 1000 MCG PO (08:35)
[2023-11-07] MEDS: COLACE 100 MG PO ×2 (08:35→20:42)
[2023-11-07] MEDS: SYNTHROID 100 MCG PO (08:35)
--- NOTE | 2023-11-07 08:46 | PTCARENOTE ---
RN informed patient of blood transfusion ordered for today. Patient apprehensive and stated 'I do not know if I want that.' Hemoglobin and normal range reviewed with patient. Patient also informed that she consented to blood products during her
stay. Patient verbalized understanding but remains apprehensive at this time. Dr. Mayfield notified and stated to hold off on transfusion until he rounds. Care ongoing at this time.
[2023-11-07] MEDS: ROXICODONE 5 MG PO ×3 (10:19→20:42)
--- NOTE | 2023-11-07 13:24 | CM ---
Reviewed the chart notes and spoke with the patient and her family at the bedside. HENRIK spoke with Lee with [facility]. [facility] can accept the patient once medically stable. Receiving 1 unit PRBC for Hgb 7.0. continues to be available to
patient/family and is monitoring medical plan for needs at discharge.
Plan: Discharge to [facility] once medically stable.
[2023-11-07] MEDS: LOVENOX 30 MG SC (17:00)
[2023-11-07] MEDS: TORADOL 10 MG IV (20:43)
[2023-11-08 03:45] VITALS: BP 142/83
[2023-11-08] MEDS: TYLENOL 650 MG PO (05:24)
[2023-11-08] MEDS: SYNTHROID 100 MCG PO (05:24)
[2023-11-08 05:56] LABS: Hematocrit 25.8 % (37.0-47.0); Hemoglobin 8.7 g/dL (12.0-16.0); Mean Corp Hgb Conc. 33.7 g/dL (33.0-37.0); Mean Corpuscular Hgb 29.4 pg (27.0-31.0); Mean Corpuscular Volume 87.2 fL (81.0-99.0); Mean Platelet Volume 9.8 fL (7.4-10.4); Platelet Count 233 10^3/uL (130-400); Red Blood Cell Count 2.96 10^6/uL (4.20-5.40); Red Cell Dist. Width 13.7 % (11.5-14.5)
[2023-11-08 07:25] VITALS: BP 128/69
--- NOTE | 2023-11-08 08:21 | W.PN.HOSP.TC ---
Today's Communication/Plan
-
Continue current management. Discharge planning in progress.
Assessment / Plan
Assessment / Plan
Gen-AAOx3, NAD
HEENT-NC, AT, anicteric, clear oral mm
Neck-supple
CV-reg, no M, +S1/S2
Lungs-clear B/L
Abd-soft, NT, ND
Ext-no edema
Musculoskeletal-right hip postop findings, no hematoma. No cyanosis, clubbing.
Skin-warm and dry
Neuro-grossly non-focal
Psych-calm, cooperative
A/P:
Acute traumatic right proximal femur fracture - fracture due to fall at home, as well as underlying osteoporosis. No loss of consciousness reported. Concern for orthostatic hypotension as cause or contributor to her fall. Has had intermittent
episodes of lightheadedness throughout the years. Check orthostatic vitals.
Nursing reports patient pulled out her own Reese catheter. Monitor bladder scans.
Acute postop anemia -suspect due to acute operative blood loss anemia. Hemoglobin 11.9 on admission, 7 yesterday. Transfused 1 unit of blood. Today Hb went up to 8.7
Orthostatic hypotension - echocardiogram showed LVEF 60 to 65%, normal RV systolic function, mild MR. Normal regional wall motion. Continue compression stockings, as needed midodrine.
Hyponatremia -present on admission, improved.
Impaired fasting glucose -hemoglobin A1c 5.7%.
Hypothyroidism (Doni's)-continue levothyroxine, dose was lowered due to suppressed TSH and elevated free T4. Recheck labs in 4 weeks as an outpatient.
Full code
Dispo -will need acute rehab on discharge. Case management aware. Consulted physiatry and accepted to rehab but daughter has some reservations and PT to reevaluate today.
Anticipated Discharge: Today
Subjective/Interval History
-
Date of Service: November 08, 2023
Patient very weak overall but denies any chest pain or shortness of breath.
Objective Data
-
Labs:
Laboratory Results
11/08/23
05:05
WBC 7.0
Hgb 8.7 L D
Hct 25.8 L
Plt Count 233
Vital Signs:
Vital Signs
Temp Pulse Resp BP Pulse Ox
98.3 F 80 18 142/83 97
11/08/23 03:45 11/08/23 03:45 11/08/23 03:45 11/08/23 03:45 11/08/23 03:45
I&O
11/07/23 11/08/23 11/09/23
06:59 06:59 06:59
Intake Total 1080 / 1080 1220 / 1220
Output Total 950 / 950
Balance 130 / 130 1220 / 1220
[2023-11-08] MEDS: VITAMIN B-12 1000 MCG PO (09:05)
[2023-11-08] MEDS: COLACE 100 MG PO (09:05)
[2023-11-08] MEDS: ROXICODONE 5 MG PO ×2 (09:06→15:26)
--- NOTE | 2023-11-08 09:18 | CON.MD ---
Documented by User: Morena Carballo PA-C 11/07/23 17:42
Consultation - Medical
-
Referring Provider:
Chief Complaint: ambulatory dysfunction due to closed right hip fracture
History of Present Illness: 87-year-old female PMH of (hypothyroidism, skin cancer, bladder prolapse) presented to ED for dizziness that resulted in a fall.Xray of the right hip revealed acute traumatic right proximal femur fracture - fracture
due to fall at home, as well as underlying osteoporosis. No loss of consciousness reported. Concern for orthostatic hypotension as cause or contributor to her fall. Has had intermittent episodes of lightheadedness throughout the years. Xray of
right hip with a comminuted intertrochanteric fracture of the proximal right femur is present, with resultant increase in varus angulation. Lesser trochanteric fracture fragment is slightly medially displaced. she is s/p Right peritrochanteric femur
fracture on 11/04/2023.
Right Hip Xray
A comminuted intertrochanteric fracture of the proximal right femur is present, with resultant increase in varus angulation. Lesser trochanteric fracture fragment is slightly medially displaced.
Past Medical History: hypothyroidism, skin cancer, bladder prolapse
Procedure History: Right peritrochanteric femur fracture on 11/04/2023. Appendectomy, Hysterectomy), Tonsillectomy, Urological Bladder surgery, and Cataracts, Bilateral Carotids,
Family History: Noncontributory
Social History:
Functional Level Premorbidly: Independent with all activities with use of cane, rolling walker.
Functional Level Currently: bed mobility�mod assist, Transfer sit to stand�mod assist, stand to sit�mod assist, stand/pivot/sit�min assist. Patient sit to stand with mod assist x 1 and min assist up to person for verbal and manual cues for correct
hand placement. Stand to sit with min assist of 2 with verbal cues for hand and foot placement. Patient ambulated with rolling walker 10 feet x 1 with 2 turns and min assist of 2 for safety. To gait pattern, slow pace, verbal cues needed for foot
placement and to push down on walker to help on weight leg to step forward and return,
Tobacco: Denies
Alcohol: Denies
Drug use: Denies
Lives with: Family
24-hour assistance available: grandson who lives with her
Number of floors: Multilevel, second floor
# steps to enter: 2
# steps to second floor: FF- may be getting chairlift
Potential First floor set up: yes
Driving: yes, during the day only
Occupation: retired
�
Allergies:
Allergy/AdvReac Type Severity Reaction Status Date / Time
prednisone Allergy dazed, Verified 09/17/22 01:18
confused,
headache,
SOB
Review of Systems:
Constitutional: (x) tired
Eye: (x) Normal _
Ear/Nose/Throat: (x) Normal _
Respiratory: (x) Normal _
Cardiovascular: (x) orthostasis
Gastrointestinal: (x) Normal _
Genitourinary: (x) Normal _
Musculoskeletal: (x) right hip ORIF, post fall
Integumentary: (x) Normal _
Neurologic: (x) Normal _
Psychiatric: (x) Normal _
Endocrine: (x) Normal _
Hematologic/Lymphatic: (x) Normal _
Allergic/Immunologic: (x) Normal _
Medications:
Active Current Visit Medication List
Category Date Time Status
Acetaminophen [Tylenol] Med 11/03/23 03:05 Active
650 mg PO Q4HPRN PRN
Cyanocobalamin [Vitamin B-12] Med 11/03/23 15:00 Active
1,000 mcg PO DAILY
Docusate Sodium [Colace] Med 11/04/23 20:00 Active
100 mg PO BID
Enoxaparin Sodium [Lovenox] Med 11/06/23 19:00 Active
30 mg SC QPM
Flush (0.9% Sodium Chloride) [Flush (Nss)] Med 11/03/23 05:00 Active
See Dose Instructions IV PER PROTOCOL
HYDROmorphone [Dilaudid] Med 11/04/23 15:11 Active
0.25 mg IV Q1HPRN PRN
Ketorolac [Toradol] Med 11/03/23 03:05 Active
10 mg IV Q6HPRN PRN
Levothyroxine [Synthroid] Med 11/04/23 07:00 Active
100 mcg PO DAILY@0700
Mag Hydrox/Al Hydrox/Simeth [Maalox] Med 11/04/23 15:11 Active
30 ml PO Q4HPRN PRN
Midodrine [ProAmatine] Med 11/05/23 12:10 Active
5 mg PO Q4HPRN PRN
Ondansetron Injectable [Zofran] Med 11/04/23 15:11 Active
4 mg IV Q6HPRN PRN
Oxycodone [Roxicodone] Med 11/04/23 15:11 Active
5 mg PO Q4HPRN PRN
Vitals:
Temp Pulse Resp BP Pulse Ox
98.3 F 86 18 121/66 97
11/07/23 15:15 11/07/23 15:15 11/07/23 15:15 11/07/23 15:15 11/07/23 15:15
Height 5 ft 3 in
Actual Weight 54.913 kg
Body Mass Index (BMI) 21.5
Physical Exam:
General Appearance/Observation: Well-developed, well-nourished individual in no apparent distress.
Pain/Comfort Assessment: Denies at the moment sitting, pain with movement
Mood/Affect: Appropriate
Integumentary/Operative Site:
�� Pressure Ulcer Evaluation: absent over heels.
��
�� Other Type of Wound: right hip
��
Eyes: Conjunctiva/Lids: normal ��� Pupils: pupils equal round and reactive to light and Accommodation
Ears/Nose/Throat: oral mucosa moist,� throat clear.������������ Lips/Teeth/Gums: normal
Neck: No muscle spasm or tenderness
Cardiovascular: Heart: regular, no murmur
Pulses: dorsalis pedis 1+ bilaterally
Respiratory: Respiratory Effort/Chest Expansion: normal ������� Auscultation: Clear to auscultation bilaterally
Gastrointestinal: abdomen not tender, no distension, normal abdominal bowel sounds
Genitourinary: No Reese
Extremities: Edema: None Cyanosis: None Trophic changes: None
Neurology Exam:
Orientation: Alert, Oriented to self, Time, Place
Memory: Intact for immediate medical concerns
Higher cortical function
Repetition: Intact
Comprehension: Intact
Two step command: Intact
Naming: Intact
Cranial Nerves:
�� CNII: Pupillary light reflex: Intact��� Visual Field:
�� CN III, IV, : Extraocular muscles: Intact
�� CN V: Facial Sensation at Forehead: Intact, Maxilla: Intact, Mandible: Intact
�� CN VII: Facial movement: Symmetric
�� CN VIII: Hearing: hard of hearing
�� CN IX/X: Speech & swallow: Normal, Position of Uvula: Midline
�� CN XI: Shoulder shrug: Symmetric
�� CN XII: Tongue protrusion: Midline
Sensory:
�� Light touch: Intact in bilateral upper and lower extremities
�
Reflexes:
�� Biceps: 1+ bilaterally
�� Brachioradialis: 1+ bilaterally
�� Triceps: 2+ bilaterally
�� Patellar: 2+ left, 1/4 right
�� Achilles:absent bilaterally
�� Babinski: Down going bilaterally
�� Clonus: None
�� Yogesh: Negative bilaterally
Cerebellar: Dysmetria/Ataxia: None
Musculoskeletal:
Motor: (Manual muscle scale 0-5)
Muscle SA EF WE EE FF FA HF KE DF EHL PF
Right� 5 5 5 5 5 5 2 3 5 5 5
Left 5 5 5 5 5 5 4 4 4 4 4
Tone: Normal in all extremities,
Range of Motion: Passively within normal limits in all extremities, deferred right LE
Lab Results
Labs
WBC 7.1 10^3/uL (4.8-10.8) 11/07/23 04:
RBC 2.36 10^6/uL (4.20-5.40) L 11/07/23 04:
Hgb 7.0 g/dL (12.0-16.0) L 11/07/23 04:
Hct 21.3 % (37.0-47.0) L 11/07/23 04:
MCV 90.3 fL (81.0-99.0) 11/07/23 04:
MCH 29.7 pg (27.0-31.0) 11/07/23 04:
MCHC 32.9 g/dL (33.0-37.0) L 11/07/23 04:
RDW 13.3 % (11.5-14.5) 11/07/23 04:
Plt Count 196 10^3/uL (130-400) 11/07/23 04:
MPV 10.1 fL (7.4-10.4) 11/07/23 04:
Abs Immat Gran (auto) 0.1 10^3/uL (0-0.05) H 11/07/23 04:
Absolute Neuts (auto) 4.5 10^3/uL (1.4-6.5) 11/07/23:
Absolute Lymphs (auto) 1.5 10^3/uL (1.2-3.4) 11/07/23 04:
Absolute Monos (auto) 0.7 10^3/uL (0.1-0.6) H 11/07/23:
Absolute Eos (auto) 0.3 10^3/uL (0-0.7) 11/07/23:
Absolute Basos (auto) 0.0 10^3/uL (0-0.2) 11/07/23:
Immature Gran % 1.5 % (0-0.5) H 04/08/24 04:26
Neutrophils % 62.9 % (42.2-75.2) 11/07/23 04:
Lymphocytes % 21.1 % (20.5-51.1) 11/07/23 04:26
Monocytes % 9.3 % (1.7-9.3) 11/07/23 04:26
Eosinophils % 4.8 % (0-6) 11/07/23 04:
Basophils % 0.4 % (0-2) 11/07/23 04:26
Nucleated RBC % 0 % 11/07/23 04:26
PT 13.5 Sec (11.4-14.6) 11/02/23 21:18
INR 1.03 11/02/23 21:18
Sodium 135 mmol/L (135-145) 11/03/23 06:11
Potassium 4.6 mmol/L (3.5-5.1) 11/03/23 06:11
Chloride 101 mmol/L (98-107) 11/03/23 06:11
Carbon Dioxide 25 mmol/L (22-30) 11/03/23 06:11
BUN 24 mg/dl (7-17) H 11/03/23 06:11
Creatinine 0.6 mg/dL (0.6-1.0) 11/03/23 06:11
Estimated Creat Clear 53 ml/min 11/03/23 06:11
eGFR > 60.00 11/03/23 06:11
Glucose 130 mg/dl (70-99) H 11/03/23 06:11
Hemoglobin A1c 5.7 % (4.0-5.6) H 11/03/23 06:11
Calcium 9.5 mg/dl (8.4-10.2) 11/03/23 06:11
Total Bilirubin 0.4 mg/dl (0.2-1.3) 11/03/23 06:11
AST 22 U/L (14-36) 11/03/23 06:11
ALT 16 U/L (0-35) 11/03/23 06:11
Alkaline Phosphatase 105 U/L (38-126) 11/03/23 06:11
Troponin I < 0.012 ng/ml 11/02/23 21:33
Total Protein 6.1 g/dl (6.3-8.2) L 11/03/23 06:11
Albumin 3.7 g/dl (3.5-5.0) 11/03/23 06:11
Vitamin B12 268 pg/ml (239-931) 11/03/23 06:11
Folate 6.6 ng/ml (2.76-20) 11/03/23 06:11
TSH 0.05 uIU/ml (0.47-4.68) L 11/03/23 06:11
Free T4 2.56 ng/dl (0.78-2.19) H 11/03/23 06:11
Free T3 3.03 pg/ml (2.77-5.27) 11/03/23 06:11
Blood Type A POS 11/07/23 05:26
Blood Type Confirm A POS 11/03/23 00:40
Antibody Screen Negative (Negative) 11/07/23 05:26
Crossmatch IS Only See Detail 11/07/23 05:26
�
Diagnostic Results: as per HPI
Assessment 87-year-old female PMH of (hypothyroidism, skin cancer, bladder prolapse) presented to ED for dizziness that resulted in a fall.Xray of the right hip revealed acute traumatic right proximal femur fracture. She is s/P right
cephalomedullary nail fixation for peritrochanteric femur fracture by Dr. Blanco on 11/04/2023.
Plan
PT/OT to increase independence with ADLs, improve balance, coordination, endurance, strength, mobility, community reintegration, decreased burden of care on others and family education.
Right Peritrochanteric femur fracture: S/p right cephalomedullary nail fixation for peritrochanteric femur fracture 11/04/23. Monitor incision, pain control, hip precautions/incision care per orthopedics. Weightbearing as tolerated right lower.
Follow-up outpatient with Dr. Blanco in 2 to 3 weeks repeat evaluation with planned removal of irene
HTN: continue medications, monitor closely
Orthostatic hypotension - echocardiogram showed LVEF 60 to 65%, normal RV systolic function, mild MR. Normal regional wall motion. Continue compression stockings. [id number] q 4 hours prn
Hyponatremia: 135. Monitor
HLD: Statin
Impaired fasting glucose -hemoglobin A1c 5.7%.:
Hypothyroidism:(Doni's)- levothyroxine 100mcg , dose lowered due to suppressed TSH (0.05 and elevated free T4 (2.26). Recheck labs in 4 weeks as an outpatient.
Bilateral lower extremity edema: Consider TEDS as able. Increased fluid will cause more force requirement to move lower extremities which requires more strength and increases fatigue.
Anemia: Likely multifactorial.� Hgb 7. transfused today. Continue to monitor.
MARÍA ELENA: bun 24, creatinine 0.6
Psych: Psychology consult.� Monitor mood, adjust medications as needed.
Skin: monitor for pressure sores/rashes/lesions.
Pain: acetaminophen, Ketorolac Prn, Zofran, oxycodone, hydromorphone 1.25 mg IV every 1 hour as needed as needed.
Bowel: Colace and Senna, PRN bisacodyl.
Bladder: Time void, PVRs, PRN straight cath.
GI Prophylaxis: Pantoprazole
DVT Prophylaxis: Lovenox 30 mg SC PM
Pulmonary: Incentive spirometry
Safety: Continue to reinforce assistance with all transfers.
Code Status:� Full code
Dispo (date/plan/equipment needs): Home with family care.� Social history reviewed.
Functional and Medical Goals: Modified Independent with ADL�s, ambulation, transfers
Summary of recommendations:
- Discharge Destination: Patient S/p right cephalomedullary nail fixation for peritrochanteric femur fracture on 11/04/23 for closed hip fracture. Would benefit from acute inpatient rehab for PT/OT to increase independence with ADLs, improve
balance, coordination, endurance, strength, mobility, community reintegration, decreased burden of care on others and family education. Currently at functional level of sit to stand with mod assist x 1 and min assist up to person for verbal and
manual cues for correct hand placement. Stand to sit with min assist of 2 with verbal cues for hand and foot placement. Patient ambulated with rolling walker 10 feet x 1 with 2 turns and min assist of 2 for safety. To gait pattern, slow pace,
verbal cues needed for foot placement and to push down on walker to help on weight leg to step forward and return,
Right Peritrochanteric femur fracture: S/p right cephalomedullary nail fixation for peritrochanteric femur fracture 11/04/23. Monitor incision, pain control, hip precautions/incision care per orthopedics. Weightbearing as tolerated right lower.
Follow-up outpatient with Dr. Blanco in 2 to 3 weeks repeat evaluation with planned removal of irene
Orthostatic hypotension - echocardiogram showed LVEF 60 to 65%, normal RV systolic function, mild MR. Normal regional wall motion. Continue compression stockings. Midodrine 5mg q 4 hours prn
Skin: monitor for pressure sores/rashes/lesions.
Pain: acetaminophen, Ketorolac Prn, Zofran for nausea, oxycodone, hydromorphone 1.25 mg IV every 1 hour as needed. Patient must be stable on oral pain medications for at least 24 hours prior to transfer
Bowel: Colace and Senna, PRN bisacodyl.
Bladder: Time void, PVRs, PRN straight cath.
GI Prophylaxis: Pantoprazole
DVT Prophylaxis: Lovenox 30 mg SC PM
Pulmonary: Incentive spirometry
Thank you for allowing me to care for your patient. Please contact me with any questions or concerns.
This note was dictated using a voice recognition system. Please excuse any typographical errors from casket liner. If you believe there are any discrepancies, please notify our office.

Documented by User: Marv Young MD 11/08/23 09:25
Consultation - Medical
-
Referring Provider: Dr. Enoch Stone
Chief Complaint: ambulatory dysfunction due to closed right hip fracture
History of Present Illness: 87-year-old female PMH of (hypothyroidism, skin cancer, bladder prolapse) presented to ED for dizziness that resulted in a fall.Xray of the right hip revealed acute traumatic right proximal femur fracture - fracture
due to fall at home, as well as underlying osteoporosis. No loss of consciousness reported. Concern for orthostatic hypotension as cause or contributor to her fall. Has had intermittent episodes of lightheadedness throughout the years. Xray of
right hip with a comminuted intertrochanteric fracture of the proximal right femur is present, with resultant increase in varus angulation. Lesser trochanteric fracture fragment is slightly medially displaced. she is s/p Right peritrochanteric femur
fracture cephalomedullary nail fixation on 11/04/[address] Shahid Blanco.
Right Hip Xray A comminuted intertrochanteric fracture of the proximal right femur is present, with resultant increase in varus angulation. Lesser trochanteric fracture fragment is slightly medially displaced.
Past Medical History: hypothyroidism, skin cancer, bladder prolapse
Procedure History: Right peritrochanteric femur fracture on 11/04/2023. Appendectomy, Hysterectomy), Tonsillectomy, Urological Bladder surgery, and Cataracts, Bilateral Carotids,
Family History: Noncontributory
Social History:
Functional Level Premorbidly: Independent with all activities with use of cane, rolling walker.
Functional Level Currently: bed mobility�mod assist, Transfer sit to stand�mod assist, stand to sit�mod assist, stand/pivot/sit�min assist. Patient sit to stand with mod assist x 1 and min assist up to person for verbal and manual cues for correct
hand placement. Stand to sit with min assist of 2 with verbal cues for hand and foot placement. Patient ambulated with rolling walker 10 feet x 1 with 2 turns and min assist of 2 for safety. To gait pattern, slow pace, verbal cues needed for foot
placement and to push down on walker to help on weight leg to step forward and return,
Tobacco: Denies
Alcohol: Denies
Drug use: Denies
Lives with: Family
24-hour assistance available: grandson who lives with her
Number of floors: Multilevel, second floor
# steps to enter: 2
# steps to second floor: FF- may be getting chairlift
Potential First floor set up: yes
Driving: yes, during the day only
Occupation: retired
Allergies:
Allergy/AdvReac Type Severity Reaction Status Date / Time
prednisone Allergy dazed, Verified 09/17/22 01:18
confused,
headache,
SOB
Review of Systems:
Constitutional: (x) abNormal _tired
Eye: (x) Normal _
Ear/Nose/Throat: (x) Normal _
Respiratory: (x) Normal _
Cardiovascular: (x) orthostasis
Gastrointestinal: (x) Normal _
Genitourinary: (x) Normal _
Musculoskeletal: (x) right hip ORIF, post fall, painful with movement, improved with rest and medication.
Integumentary: (x) abNormal _left hip incision
Neurologic: (x) Normal _denies any numbness or tingling
Psychiatric: (x) Normal _
Endocrine: (x) Normal _
Hematologic/Lymphatic: (x) Normal _
Allergic/Immunologic: (x) Normal _
Medications:
Active Current Visit Medication List
Category Date Time Status
Acetaminophen [Tylenol] Med 11/03/23 03:05 Active
650 mg PO Q4HPRN PRN
Cyanocobalamin [Vitamin B-12] Med 11/03/23 15:00 Active
1,000 mcg PO DAILY
Docusate Sodium [Colace] Med 11/04/23 20:00 Active
100 mg PO BID
Enoxaparin Sodium [Lovenox] Med 11/06/23 19:00 Active
30 mg SC QPM
Flush (0.9% Sodium Chloride) [Flush (Nss)] Med 11/03/23 05:00 Active
See Dose Instructions IV PER PROTOCOL
HYDROmorphone [Dilaudid] Med 11/04/23 15:11 Active
0.25 mg IV Q1HPRN PRN
Ketorolac [Toradol] Med 11/03/23 03:05 Active
10 mg IV Q6HPRN PRN
Levothyroxine [Synthroid] Med 11/04/23 07:00 Active
100 mcg PO DAILY@0700
Mag Hydrox/Al Hydrox/Simeth [Maalox] Med 11/04/23 15:11 Active
30 ml PO Q4HPRN PRN
Midodrine [ProAmatine] Med 11/05/23 12:10 Active
5 mg PO Q4HPRN PRN
Ondansetron Injectable [Zofran] Med 11/04/23 15:11 Active
4 mg IV Q6HPRN PRN
Oxycodone [Roxicodone] Med 11/04/23 15:11 Active
5 mg PO Q4HPRN PRN
Vitals:
Temp Pulse Resp BP Pulse Ox
98.3 F 86 18 121/66 97
11/07/23 15:15 11/07/23 15:15 11/07/23 15:15 11/07/23 15:15 11/07/23 15:15
Height 5 ft 3 in
Actual Weight 54.913 kg
Body Mass Index (BMI) 21.5
Physical Exam:
General Appearance/Observation: Well-developed, well-nourished female in no apparent distress.
Pain/Comfort Assessment: Denies at the moment sitting, pain with movement
Mood/Affect: Appropriate
Integumentary/Operative Site:
�� Pressure Ulcer Evaluation: absent over heels.
�� �� Other Type of Wound: right hip Aquacel clean dry and intact
��
Eyes: Conjunctiva/Lids: normal ��� Pupils: pupils equal round and reactive to light and Accommodation
Ears/Nose/Throat: oral mucosa moist,� throat clear.������������ Lips/Teeth/Gums: normal
Neck: No muscle spasm or tenderness
Cardiovascular: Heart: regular, no murmur
Pulses: dorsalis pedis 1+ bilaterally
Respiratory: Respiratory Effort/Chest Expansion: normal ������� Auscultation: Clear to auscultation bilaterally
Gastrointestinal: abdomen not tender, no distension, normal abdominal bowel sounds
Genitourinary: No Reese
Extremities: Edema: None Cyanosis: None Trophic changes: None
Neurology Exam:
Orientation: Alert, Oriented to self, Time, Place
Memory: Intact for recent medical concerns
Higher cortical function
Comprehension: Intact
Two step command: Intact
Cranial Nerves:
�� CNII: Pupillary light reflex: Intact��� Visual Field: Intact
�� CN III, IV, : Extraocular muscles: Intact
�� CN VII: Facial movement: Symmetric
�� CN VIII: Hearing: hard of hearing
�� CN IX/X: Speech & swallow: Normal, Position of Uvula: Midline
�� CN XI: Shoulder shrug: Symmetric
�� CN XII: Tongue protrusion: Midline
Sensory:
�� Light touch: Intact in bilateral upper and lower extremities
�
Reflexes:
�� Biceps: 1+ bilaterally
�� Brachioradialis: 1+ bilaterally
�� Triceps: 2+ bilaterally
�� Patellar: 2+ left, 0 right
�� Achilles:absent bilaterally
�� Babinski: Down going bilaterally
�� Clonus: None
�� Yogesh: Negative bilaterally
Cerebellar: Dysmetria/Ataxia: None
Musculoskeletal: Motor: (Manual muscle scale 0-5)
Muscle SA EF WE EE FF FA HF KE DF EHL PF
Right� 5 5 5 5 5 5 2 2+ 5 5 5
Left 5 5 5 5 5 5 4 5 5 5 5
Tone: Normal in all extremities,
Range of Motion: Passively within normal limits in all extremities, deferred right LE
Lab Results
Labs
WBC 7.1 10^3/uL (4.8-10.8) 11/07/23 04:26
RBC 2.36 10^6/uL (4.20-5.40) L 11/07/23 04:26
Hgb 7.0 g/dL (12.0-16.0) L 11/07/23 04:
Hct 21.3 % (37.0-47.0) L 11/07/23 04:
MCV 90.3 fL (81.0-99.0) 11/07/23 04:
MCH 29.7 pg (27.0-31.0) 11/07/23 04:
MCHC 32.9 g/dL (33.0-37.0) L 11/07/23 04:
RDW 13.3 % (11.5-14.5) 11/07/23 04:
Plt Count 196 10^3/uL (130-400) 11/07/23 04:
MPV 10.1 fL (7.4-10.4) 11/07/23 04:
Abs Immat Gran (auto) 0.1 10^3/uL (0-0.05) H 11/07/23 04:
Absolute Neuts (auto) 4.5 10^3/uL (1.4-6.5) 11/07/23 04:26
Absolute Lymphs (auto) 1.5 10^3/uL (1.2-3.4) 11/07/23 04:
Absolute Monos (auto) 0.7 10^3/uL (0.1-0.6) H 11/07/23 04:
Absolute Eos (auto) 0.3 10^3/uL (0-0.7) 11/07/23 04:
Absolute Basos (auto) 0.0 10^3/uL (0-0.2) 11/07/23 04:26
Immature Gran % 1.5 % (0-0.5) H 11/07/23 04:26
Neutrophils % 62.9 % (42.2-75.2) 11/07/23 04:
Lymphocytes % 21.1 % (20.5-51.1) 11/07/23 04:26
Monocytes % 9.3 % (1.7-9.3) 11/07/23 04:
Eosinophils % 4.8 % (0-6) 11/07/23 04:26
Basophils % 0.4 % (0-2) 11/07/23 04:
Nucleated RBC % 0 % 11/07/23 04:
PT 13.5 Sec (11.4-14.6) 11/02/23 21:18
INR 1.03 11/02/23 21:18
Sodium 135 mmol/L (135-145) 11/03/23 06:11
Potassium 4.6 mmol/L (3.5-5.1) 11/03/23 06:11
Chloride 101 mmol/L (98-107) 11/03/23 06:11
Carbon Dioxide 25 mmol/L (22-30) 11/03/23 06:11
BUN 24 mg/dl (7-17) H 11/03/23 06:11
Creatinine 0.6 mg/dL (0.6-1.0) 11/03/23 06:11
Estimated Creat Clear 53 ml/min 11/03/23 06:11
eGFR > 60.00 11/03/23 06:11
Glucose 130 mg/dl (70-99) H 11/03/23 06:11
Hemoglobin A1c 5.7 % (4.0-5.6) H 11/03/23 06:11
Calcium 9.5 mg/dl (8.4-10.2) 11/03/23 06:11
Total Bilirubin 0.4 mg/dl (0.2-1.3) 11/03/23 06:11
AST 22 U/L (14-36) 11/03/23 06:11
ALT 16 U/L (0-35) 11/03/23 06:11
Alkaline Phosphatase 105 U/L (38-126) 11/03/23 06:11
Troponin I < 0.012 ng/ml 11/02/23 21:33
Total Protein 6.1 g/dl (6.3-8.2) L 11/03/23 06:11
Albumin 3.7 g/dl (3.5-5.0) 11/03/23 06:11
Vitamin B12 268 pg/ml (239-931) 11/03/23 06:11
Folate 6.6 ng/ml (2.76-20) 11/03/23 06:11
TSH 0.05 uIU/ml (0.47-4.68) L 11/03/23 06:11
Free T4 2.56 ng/dl (0.78-2.19) H 11/03/23 06:11
Free T3 3.03 pg/ml (2.77-5.27) 11/03/23 06:11
Blood Type A POS 11/07/23 05:26
Blood Type Confirm A POS 11/03/23 00:40
Antibody Screen Negative (Negative) 11/07/23 05:26
Crossmatch IS Only See Detail 11/07/23 05:26
Diagnostic Results: as per HPI
Assessment
87-year-old female PMH of (hypothyroidism, skin cancer, bladder prolapse) presented to ED for dizziness that resulted in a fall. Xray of the right hip revealed acute traumatic right proximal femur fracture. She is s/P right cephalomedullary nail
fixation for peritrochanteric femur fracture by Dr. Blanco on 11/04/2023.
Plan
PT/OT to increase independence with ADLs, improve balance, coordination, endurance, strength, mobility, community reintegration, decreased burden of care on others and family education.
Right Peritrochanteric femur fracture: S/p right cephalomedullary nail fixation for peritrochanteric femur fracture 11/04/23. Monitor incision, pain control, hip precautions/incision care per orthopedics. Weightbearing as tolerated right lower.
Follow-up outpatient with Dr. Blanco in 2 to 3 weeks repeat evaluation with planned removal of irene
HTN: continue medications, monitor closely
Orthostatic hypotension - echocardiogram showed LVEF 60 to 65%, normal RV systolic function, mild MR. Normal regional wall motion. Continue compression stockings. Midodrine5 mg q 4 hours prn
Hyponatremia: 135. Monitor
HLD: Statin
Impaired fasting glucose -hemoglobin A1c 5.7%.:
Hypothyroidism:(Doni's)- levothyroxine 100 mcg , dose lowered due to suppressed TSH (0.05 and elevated free T4 (2.26). Recheck labs in 4 weeks as an outpatient.
Bilateral lower extremity edema: Consider TEDS as able. Increased fluid will cause more force requirement to move lower extremities which requires more strength and increases fatigue.
Anemia: Likely multifactorial.� Hgb 7. transfused today. Continue to monitor.
MARÍA ELENA: bun 24, creatinine 0.6
Psych: Psychology consult.� Monitor mood, adjust medications as needed.
Skin: monitor for pressure sores/rashes/lesions.
Pain: acetaminophen, Ketorolac Prn, Zofran, oxycodone, hydromorphone 1.25 mg IV every 1 hour as needed as needed.
Bowel: Colace and Senna, PRN bisacodyl.
Bladder: Time void, PVRs, PRN straight cath.
GI Prophylaxis: Pantoprazole
DVT Prophylaxis: Mechanical and Lovenox 30 mg SC PM
Pulmonary: Incentive spirometry
Safety: Continue to reinforce assistance with all transfers.
Code Status:� Full code
Dispo (date/plan/equipment needs): Home with family care.� Social history reviewed.
Functional and Medical Goals: Modified Independent with ADL�s, ambulation, transfers
Summary of recommendations:
- Discharge Destination: Patient S/p right cephalomedullary nail fixation for peritrochanteric femur fracture on 11/04/23 for closed hip fracture. Would benefit from acute inpatient rehab for PT/OT to increase independence with ADLs, improve
balance, coordination, endurance, strength, mobility, community reintegration, decreased burden of care on others and family education. Currently at functional level of sit to stand with mod assist x 1 and min assist up to person for verbal and
manual cues for correct hand placement. Stand to sit with min assist of 2 with verbal cues for hand and foot placement. Patient ambulated with rolling walker 10 feet x 1 with 2 turns and min assist of 2 for safety. To gait pattern, slow pace,
verbal cues needed for foot placement and to push down on walker to help on weight leg to step forward and return,
Right Peritrochanteric femur fracture: S/p right cephalomedullary nail fixation for peritrochanteric femur fracture 11/04/23. Monitor incision, pain control, hip precautions/incision care per orthopedics. Weightbearing as tolerated right lower.
Follow-up outpatient with Dr. Blanco in 2 to 3 weeks repeat evaluation with planned removal of irene
Orthostatic hypotension - echocardiogram showed LVEF 60 to 65%, normal RV systolic function, mild MR. Normal regional wall motion. Continue compression stockings. Midodrine 5mg q 4 hours prn
Pain: acetaminophen, Ketorolac Prn, Zofran for nausea, oxycodone, hydromorphone 1.25 mg IV every 1 hour as needed. Patient must be stable on oral pain medications for at least 24 hours prior to transfer
Bowel: Colace and Senna, PRN bisacodyl.
Bladder: Time void, PVRs, PRN straight cath.
DVT Prophylaxis: Mechanical and Lovenox 30 mg SC PM
Pulmonary: Incentive spirometry
Thank you for allowing me to care for your patient. Please contact me with any questions or concerns.
Attending statement:
I saw and examined the patient today. Reviewed care plan with patient, therapy, nursing, and physician assistant kitchen manager. I agree with the above subjective, physical exam, and plan as documented above.
--- NOTE | 2023-11-08 12:15 | W.DCSUMMARY ---
Discharge Summary
Discharge Data
Date of Admission: 11/02/23
Date of Discharge: 11/08/23
-
Pending Results: No
Hospital Course
Patient 87-year-old female with history of hypothyroidism, bladder prolapse, skin cancer, presented to the hospital for a fall and found to have a significant right intertrochanteric femur fracture. Orthopedic was consulted. Patient underwent
right short cephalomedullary nail insertion on 11/03. She had some post op anemia and required blood transfusion. Her hemoglobin went down appropriately after transfusion. Her TSH was noted to be suppressed and thyroid medications were adjusted
accordingly. Recommended to repeat thyroid function test in 6 weeks. Rest of her hospital postop course has been unremarkable. Patient otherwise hemodynamically stable. She will be discharged to acute rehab today.
Discharge duration: 32 minutes
Discharge Plan
-
Patient Disposition: Acute Rehab Facility
Discharge Diagnosis/Procedures: Right hip fracture status post right cephalomedullary nail on 11/03. Acute postop anemia. Orthostatic hypotension. Hyponatremia. History of hypothyroidism.
Diet: Low Cholesterol
Activity: Other activity
Additional Activity: As instructed by orthopedic.
Blood Work: PCP to order CBC, BMP within 1 week.
Referrals:
Tato Xiao MD [Family Provider] - in less than 1 week
Prescriptions:
New
acetaminophen 325 mg Tablet
650 mg PO Q4HPRN PRN (Reason: mild pain/WHARTON/temp> 100.4F) Qty: 20 0RF
midodrine 5 mg Tablet
5 mg PO Q4HPRN PRN (Reason: SBP<100) 14 Days Qty: 20 0RF
cyanocobalamin (vitamin B-12) 1,000 mcg Tablet
1,000 mcg PO DAILY 30 Days Qty: 30 0RF
levothyroxine 100 mcg Tablet
100 mcg PO DAILY@0700 30 Days Qty: 30 0RF
docusate sodium 100 mg Capsule
100 mg PO BID 14 Days Qty: 28 0RF
oxycodone 5 mg Tablet
5 mg PO Q4HPRN PRN (Reason: moderate pain) Qty: 10 0RF
enoxaparin 30 mg/0.3 mL Syringe
30 mg SC QPM 28 Days Qty: 8.4 0RF
Discontinued
melatonin 3 mg Tablet
6 mg PO HS Qty: 0
aspirin [Ryley Low Dose Aspirin] 81 MG tablet,delayed release (DR/EC)
81 mg PO DAILY 30 Days Qty: 30 0RF
levothyroxine 125 mcg tablet
125 mcg PO DAILY
Discharge Orders:
Discharge Patient (As Directed); Ordered 11/08/23
Ordered By: Adarsh Mayfield
Discharge Date and Time
Discharge Date/Time: 11/08/23 16:31
Print Language: URDU
--- NOTE | 2023-11-08 12:45 | CM ---
Addendum entered by Jaye Weaver RN 11/08/23 13:21:
Plan: Discharge to [facility] today.
Call report to: [phone]
Fax report to: [phone]
Original Note:
IMM signed and placed on chart. Patient is discharged today.
[2023-11-08 13:44] VITALS: BP 139/74; BP 139/81; PULSE 82; O2SAT 95
[2023-11-08 13:46] VITALS: BP 139/74; BP 139/81; PULSE 82; O2SAT 95
[2023-11-08 15:15] VITALS: BP 137/72
== END 2023-11-08 16:31 | DRG 481 ==
LOC: 2 SOUTH 23:13
PROVIDERS: Clinical Nurse Specialist Family Health; Hospitalist; ADMITTING PHYSICIAN Hospitalist; ATTENDING PHYSICIAN Hospitalist; CONSULT PHYSICIAN Orthopaedic Surgery; CONSULT PHYSICIAN Physical Medicine & Rehabilitation; EMERGENCY PHYSICIAN Emergency Medicine; FAMILY PHYSICIAN Family Medicine
PROC: 0QS606Z Reposition Right Upper Femur with Intramedullary Internal Fixation Device, Open Approach (ICD-10-PCS; 2023-11-04)
DX: S72.141A Displaced intertrochanteric fracture of right femur, initial encounter for closed fracture (principal); D62 Acute posthemorrhagic anemia; E87.1 Hypo-osmolality and hyponatremia; M80.851A Other osteoporosis with current pathological fracture, right femur, initial encounter for fracture; W18.39XA Other fall on same level, initial encounter; I95.1 Orthostatic hypotension; E06.3 Autoimmune thyroiditis; Z79.82 Long term (current) use of aspirin
CPT/HCPCS: 70450; 73501; 73502; 76000; 80053; 82607; 82746; 83036; 84439; 84443; 84481; 84484; 85025; 85027; 85610; 86850; 86900; 86901; 86920; 93005; 93306; 96374; 97116; 97162; 97166; 97530; 97535; 99285; P9016